=== PATIENT | female | born 1995 | race Caucasian/White ===

== ENCOUNTER 2016-08-17 19:41 | Emergency (ER) | payer OTHER ==
--- NOTE | 2016-08-17 20:13 | PROVIDER DOCUMENTATION ---
HPI-Female /OB/Breast - General Chief Complaint: Female Stated Complaint: 12 WEEKS/BLEEDING Time Seen by Provider: 08/17/16 19:57 Source: reports: patient Allergies/Adverse Reactions: Patient Allergies Allergy/AdvReac Type Severity Reaction Status Date / Time No Known Allergies Allergy Verified 08/17/16 19:51 Home Medications: Vit No.78/Iron/FA [Prenatabs FA Tablet] 1 tab PO DAILY 08/17/16 - History of Present Illness-Female /OB Nature of Presenting Problem: 20 y/o WF approx 12 wks dated by US in the beginning of July, c/o vaginal bleeding that started about 1 hour ago, that at first was as heavy as her menses, but now is just spotting, with some mild abdominal pain in the suprapubic region. Per pt, last US had no abnormalities. She has not seen an OB yet, going to [facility] for the . Denies nausea or vomiting. Has not bled prior to this during her . Review of Systems - Adult - REVIEW OF SYSTEMS - ADULT Constitutional: reports: no symptoms reported. denies: chills, fever, fatique Eyes: reports: no symptoms reported. denies: blurred vision, double vision, eye pain Ears, Nose, Mouth & Throat: reports: no symptoms reported. denies: ear pain, nose pain, throat pain Cardiovascular: reports: no symptoms reported. denies: chest pain, palpitations Respiratory: reports: no symptoms reported. denies: cough, shortness of breath , wheezing Gastrointestinal: reports: see HPI, abdominal pain. denies: diarrhea, nausea, vomiting Genitourinary: reports: no symptoms reported. denies: dysuria, frequency, flank pain Musculoskeletal: reports: no symptoms reported. denies: bone pain, back pain, muscle aches Integumentary: reports: no symptoms reported. denies: rash Neurological: reports: no symptoms reported. denies: headache/migraines Psychiatric: reports: no symptoms reported Endocrine: reports: no symptoms reported Hematologic/Lymphatic: reports: no symptoms reported Allergic/Immunologic: reports: no symptoms reported All Other Systems: Reviewed and Negative Past History - Adult - PAST MEDICAL HISTORY-ADULT Review of Records: reports: Old Records Reviewed, Nursing Assessment Review, Medications Reviewed, Social history reviewed & non-contributory. Major Childhood Illnesses: reports: denies history Cardiovascular: reports: denies history Respiratory: reports: denies history Gastrointestinal: reports: denies history Obstetrical/Gynecological: reports: denies history Genitourinary: reports: denies history Musculoskeletal: reports: denies history Neurological: reports: denies history Endocrine/Immune: reports: denies history Other Conditions: reports: denies history - FAMILY HISTORY Family History: reviewed, not pertinent Physical Exam-General - PHYSICAL EXAM-ADULT Initial Vital Signs Reviewed: Yes - CONSTITUTIONAL General Appearance: appears well, alert, no apparent distress, anxious - EYES Eyes: PERRL/EOMI, pink conjunctivae - HEAD, EARS, NOSE, MOUTH & THROAT HENMT: normocephalic/atraumatic - NECK Neck: non-tender, full range of motion, supple, normal inspection - RESPIRATORY Respiratory: chest non-tender, lungs clear, normal breath sounds, no pleuratic chest pain, no respiratory distress, no accessory muscle use. negative: respiratory distress, decreased breath sounds, accessory muscle use, crackles, rales, rhonchi, wheezing - CARDIOVASCULAR Cardiovascular: normal peripheral pulses, regular rate, rhythm, no edema - GASTROINTESTINAL (ABDOMEN) Abdominal Exam: normal bowel sounds, soft, no organomegaly, no pulsatile mass, tenderness (suprapubic). negative: abdominal bruit, abnormal bowel sounds, distended, guarding, rigid, rebound - LYMPHATIC Lymphatic: no adenopathy - MUSCULOSKELETAL Extremity: normal gait - SKIN Integumentary: normal color, normal turgor, warm/dry - NEUROLOGIC Neurologic: grossly normal, no motor/sensory deficits - PSYCHIATRIC Psych/Mental Status: normal mood/affect, normal thought content, normal thought process, oriented x 3 Progress - PLAN OF CARE/RESULTS Progress/Plan/Lab Results: Vital Signs Temp Pulse Resp BP Pulse Ox 08/17/16 19:49 98.2 F 108 H 18 137/80 100 No Known Allergies Allergy (Verified 08/17/16 19:51) Vit No.78/Iron/FA [Prenatabs FA Tablet] 1 tab PO DAILY 08/17/16 Laboratory 08/17/16 08/17/16 08/17/16 20:22 20:22 20:22 WBC 10.19 RBC 4.36 Hgb 12.5 Hct 37.9 MCV 86.9 MCH 28.7 MCHC 33.0 RDW Std Deviation 13.5 Plt Count 227 MPV 10.7 H Immature Gran % (Auto) 0.1 Neut % (Auto) 72.5 Lymph % (Auto) 20.5 Burnet % (Auto) 5.9 Eos % (Auto) 0.6 Baso % (Auto) 0.4 Immature Gran # (Auto) 0.01 Neut # (Auto) 7.39 H Lymph # (Auto) 2.09 Burnet # (Auto) 0.60 H Eos # (Auto) 0.06 Baso # (Auto) 0.04 Sodium Potassium Chloride Carbon Dioxide Anion Gap BUN Creatinine Estimated GFR/1.73 m2 BUN/Creatinine Ratio Glucose Calculated Osmolality Calcium Total Bilirubin AST ALT Alkaline Phosphatase Total Protein Albumin Globulin Albumin/Globulin Ratio Ser , Semi-Qnt 73662.0 Urine Source Urine Color Urine Clarity Urine pH Ur Specific Killen Urine Protein Urine Ketones Urine Blood Urine Nitrite Urine Bilirubin Urine Urobilinogen Urine Microscopic RBC Urine WBC Urine Microscopic WBC Ur Epithelial Cells Urine Bacteria Urine Glucose Blood Type A POSITIVE 08/17/16 08/17/16 20:22 20:00 WBC RBC Hgb Hct MCV MCH MCHC RDW Std Deviation Plt Count MPV Immature Gran % (Auto) Neut % (Auto) Lymph % (Auto) Burnet % (Auto) Eos % (Auto) Baso % (Auto) Immature Gran # (Auto) Neut # (Auto) Lymph # (Auto) Burnet # (Auto) Eos # (Auto) Baso # (Auto) Sodium 137 Potassium 3.7 Chloride 105 Carbon Dioxide 22 L Anion Gap 11 BUN 9 Creatinine 0.6 Estimated GFR/1.73 m2 > 60 BUN/Creatinine Ratio 15 Glucose 108 H Calculated Osmolality 273 Calcium 9.0 Total Bilirubin < 0.15 L AST 14 ALT 13 Alkaline Phosphatase 46 Total Protein 6.6 Albumin 3.7 Globulin 3.0 Albumin/Globulin Ratio 1.0 Ser , Semi-Qnt Urine Source CLEAN CATCH Urine Color YELLOW Urine Clarity SL. CLOUDY A Urine pH 6.5 Ur Specific Killen 1.020 Urine Protein TRACE A Urine Ketones NEGATIVE Urine Blood 4+ Urine Nitrite NEGATIVE Urine Bilirubin NEGATIVE Urine Urobilinogen 1+(1 mg/dL) Urine Microscopic RBC TNTC A Urine WBC 1+ A Urine Microscopic WBC 10-20 A Ur Epithelial Cells <10 Urine Bacteria 1+ Urine Glucose NEGATIVE Blood Type Orders Category Date Time Status Heart Tones NOW Care 08/17/16 19:58 Active US OBS COMPLETE < 14 WKS [US] Stat Exams 08/17/16 20:56 Taken ABORH [BBK] Stat Lab 08/17/16 20:22 Completed CBC WITH ELECTRONIC DIFF [HEME] Stat Lab 08/17/16 20:22 Completed COMPREHENSIVE METABOLIC PANEL [CHEM] Stat Lab 08/17/16 20:22 Completed QUANT TEST Stat Lab 08/17/16 20:22 Completed UA [URINALYSIS PL W/POSS RFLX CULT] [URINALYSIS] Stat Lab 08/17/16 20:00 Completed URINE CULTURE [RM] Routine Lab 08/17/16 20:46 Received - REASSESSMENT Reassessment #1 Time Reassessed: 20:38 (FHT 168) Reassessment #2 Time Reassessed: 21:24 (Discusse lab results with patient and that we will be waiting on US with two patients ahead of them at this time. Symptoms have improved with decreased vaginal bleeding since arrival. ) Status: unchanged - ULTRASOUND (By Radiology) 1 US Study: Transvaginal Impression: Normal (Normal right overay, left ovary not identified. no free fluid. 13 week IUP EDC 02/16/17, FHR 160 bpm, no abnormalities seen per Dr. Merino , radiology) Departure - Departure Time of Disposition Order: 23:10 DIAGNOSIS: Qualifiers: Weeks of gestation: 13 weeks Qualified Code(s): Z3A.13 - 13 weeks gestation of Disposition: HOME 01 Certified Medical Emergency: Emergent Condition: Stable Additional Instructions: Follow up with the sample washer ED Follow Up Instructions: You have been treated by a care provider in the Emergency Department. These instructions are being provided to you so you can have an understanding of how to care for yourself upon discharge. Upon discharge from the Emergency Department, you are responsible for making arrangements for follow-up care by a physician of your choice. Take all prescribed medications as directed. Return to the Emergency Department immediately for any new or worsening symptoms. You may call the Physician Referral phone number at [phone] to obtain a list of Physicians who are taking new patients. Attestation - Physician/ Mid-level Attestation Patient care was provided by Mid-level provider (COMSEC MANAGER/PA):: Yes Mid-level provider:: Maria Ines Merrill Mid-level documentation review:: The Mid-level provider documentation, treatment plan and medical decision making was reviewed by the physician who agrees with all treatment and medical decision making by the MLP.
[2016-08-17 20:31] LABS: MANUAL DIFF NEEDED? NO
[2016-08-17 20:32] LABS: URINE SOURCE CLEAN CATCH
[2016-08-17 20:36] LABS: BASO% 0.4 % (0.0-0.8); EOS# 0.06 X1000 (0.0-0.7); EOS% 0.6 % (0.0-10.0); HEMATOCRIT 37.9 % (37.0-47.0); HEMOGLOBIN 12.5 g/dL (12.0-16.0); IMM GRAN# 0.01 X1000 (0.0-0.04); IMM GRAN% 0.1 % (0.0-0.5); LYMPH# 2.09 X1000 (1.2-3.4); LYMPH% 20.5 % (20.5-51.1); MCH 28.7 PG (27-31); MCV 86.9 FL (81-99); MONO% 5.9 % (1.7-9.3); MPV 10.7 FL (7.4-10.4); NEUT% 72.5 % (42.2-75.2); PLT 227 X1000 (130-400); RBC 4.36 XMIL (4.2-5.4)
[2016-08-17 20:38] LABS: BILIRUBIN URINE NEGATIVE (NEGATIVE); BLOOD URINE 4+ (NEGATIVE); CLARITY SL. CLOUDY (CLEAR); COLOR YELLOW; GLUCOSE URINE NEGATIVE (NEGATIVE); LEUKOCYTES URINE 1+ (NEGATIVE); NITRITE URINE NEGATIVE (NEGATIVE); PH URINE 6.5; PROTEIN URINE TRACE mg/dL (NEGATIVE); UROBILINOGEN URINE 1+(1 mg/dL)
[2016-08-17 20:46] LABS: URINE CULTURE PL NEEDED? YES; URINE EPITHELIAL CELLS <10 /HPF (<10); URINE RBC TNTC /HPF (<10)
[2016-08-17 20:58] LABS: AGAP 11; ALBUMIN 3.7 g/dL (3.5-5.0); ALKALINE PHOSPHATASE 46 U/L (32-104); BUN 9 mg/dL (8-22); CHLORIDE 105 mmol/L (98-107); COSMO 273; GOT 14 U/L (10-30); GPT 13 U/L (10-36); POTASSIUM 3.7 mmol/L (3.5-5.1); SODIUM 137 mmol/L (136-145); TCO2 22 mmol/L (25-35); TOTAL BILIRUBIN < 0.15 mg/dL (0.20-1.00); TOTAL PROTEIN 6.6 g/dL (6.3-8.3)
[2016-08-17 23:19] VITALS: BP 132/80
--- NOTE | 2016-08-18 10:16 | Diag Imaging Result Document ---
PROCEDURE NAME: US OBS COMPLETE < 14 WKS - 08/17/2016 OBSTETRIC ULTRASOUND: COMPARISON: None available. FINDINGS: There is a single viable intrauterine gestation. The placenta is located posteriorly and the fetus is in variable position. No gross or placental anomalies are identified. The measured heart rate is 160 beats per minute. The gestational age by ultrasound is 13 weeks 6 days. The left ovary is not identified. The right ovary is grossly unremarkable. No pelvic free fluid is identified. IMPRESSION: Single viable intrauterine gestation with no gross anomalies appreciated.
== END 2016-08-17 23:18 | disposition home or self-care (01) ==
LOC: P.ED 19:41
DX: O46.91 Antepartum hemorrhage, unspecified, first trimester (principal); R10.9 Unspecified abdominal pain; R10.819 Abdominal tenderness, unspecified site; Z3A.13 13 weeks gestation of pregnancy
CPT/HCPCS: 76801; 80053; 81001; 84702; 85025; 86900; 86901; 87088

== ENCOUNTER 2017-02-13 20:00 | Inpatient (IN) ==
[2017-02-13] MEDS ORDERED: PEPCID IV PRN (20:16)
[2017-02-13] MEDS ORDERED: ZOFRAN IV PRN (20:16)
[2017-02-13] MEDS ORDERED: AMBIEN PO PRN (20:16)
[2017-02-13] MEDS ORDERED: PEPCID PO PRN (20:16)
[2017-02-13] MEDS ORDERED: STADOL IV PRN ×2 (20:16)
[2017-02-13] MEDS ORDERED: TYLENOL PO PRN (20:16)
[2017-02-13] MEDS ORDERED: PEPCID PO ONE (20:16)
[2017-02-13] MEDS ORDERED: KEFZOL 1 GM/D5W 1 GM/50 ML IVPB IV PRN (20:16)
[2017-02-13] MEDS ORDERED: BRETHINE SUBQ PRN (20:16)
[2017-02-13] MEDS ORDERED: REGLAN PO ONE (20:16)
[2017-02-13] MEDS ORDERED: AMPICILLIN 2 GM/NS 2 GM/100 ML IVPB IV ONE (21:00)
[2017-02-13] MEDS: LR 1,000 ML IV SCH (21:45)
[2017-02-13 22:25] LABS: MANUAL DIFF NEEDED? NO
[2017-02-13 22:29] LABS: URINE SOURCE VOIDED
[2017-02-13 22:31] LABS: BASO% 0.2 % (0.0-0.8); EOS# 0.07 X1000 (0.0-0.7); EOS% 0.7 % (0.0-10.0); HEMATOCRIT 36.2 % (37.0-47.0); HEMOGLOBIN 11.6 g/dL (12.0-16.0); IMM GRAN# 0.03 X1000 (0.0-0.04); IMM GRAN% 0.3 % (0.0-0.5); LYMPH# 2.05 X1000 (1.2-3.4); LYMPH% 21.3 % (20.5-51.1); MCH 27.8 PG (27-31); MCV 86.8 FL (81-99); MONO# 0.63 X1000 (0.11-0.59); MONO% 6.6 % (1.7-9.3); MPV 12.4 FL (7.4-10.4); NEUT% 70.9 % (42.2-75.2); PLT 209 X1000 (130-400); RBC 4.17 XMIL (4.2-5.4)
[2017-02-13 22:39] LABS: UR AMPHETAMINES QUAL NONE DETECTED (NONE DETECT); UR BARBITUATES QUAL NONE DETECTED (NONE DETECT); UR BENZODIAZEPIN QUAL NONE DETECTED (NONE DETECT); UR CANNABINOIDS QUAL NONE DETECTED (NONE DETECT); UR COCAINE QUAL NONE DETECTED (NONE DETECT); UR MDMA QUAL NONE DETECTED (NONE DETECT); UR METHADONE QUAL NONE DETECTED (NONE DETECT); UR METHAMPHETAMINE QUAL NONE DETECTED (NONE DETECT); UR OPIATES QUAL NONE DETECTED (NONE DETECT); UR OXYCODONE QUAL NONE DETECTED (NONE DETECT); UR PCP QUAL NONE DETECTED (NONE DETECT); UR TCA QUAL NONE DETECTED (NONE DETECT)
[2017-02-13 22:50] LABS: BILIRUBIN URINE NEGATIVE (NEGATIVE); BLOOD URINE NEGATIVE (NEGATIVE); CLARITY SL. CLOUDY (CLEAR); COLOR YELLOW; GLUCOSE URINE NEGATIVE (NEGATIVE); LEUKOCYTES URINE TRACE (NEGATIVE); NITRITE URINE NEGATIVE (NEGATIVE); PROTEIN URINE TRACE mg/dL (NEGATIVE); SP GRAVITY URINE 1.025; UROBILINOGEN URINE NORMAL
[2017-02-13] MEDS ORDERED: CYTOTEC PO ONE (23:00)
[2017-02-14] MEDS: AMPICILLIN 1 GM/NS 1 GM/50 ML IVPB IV SCH ×5 (01:10→17:06)
[2017-02-14] MEDS: CYTOTEC PO SCH ×2 (03:16→18:43)
[2017-02-14] MEDS ORDERED: PITOCIN 30 UNITS/LR 30 UNITS/500 ML IV.SOLN IV SCH (07:00)
[2017-02-14] MEDS ORDERED: MINERAL OIL PO ONE (07:30)
[2017-02-14] MEDS ORDERED: XYLOCAINE-MPF 1% INJ ONE ×2 (07:30→08:40)
[2017-02-14] MEDS ORDERED: FENTANYL-BUPIV-NS 2 MCG-0.1% 200 ML EPIDURAL PRN (07:34)
[2017-02-14] MEDS: STADOL IV PRN ×2 (09:24→12:20)
[2017-02-14] MEDS: LR 1,000 ML IV SCH ×3 (11:34→15:48)
[2017-02-14] MEDS ORDERED: NAROPIN 0.2% ONE (12:21)
[2017-02-14] MEDS ORDERED: SODIUM CHLORIDE 0.9% INJ ONE (17:00)
[2017-02-14] MEDS ORDERED: PEPCID IV ONE (17:00)
[2017-02-14] MEDS ORDERED: ROBINUL ONE (17:10)
[2017-02-14] MEDS ORDERED: XYLOCAINE-MPF 2% ONE ×2 (17:10→18:51)
[2017-02-14] MEDS ORDERED: PITOCIN ONE (17:10)
[2017-02-14] MEDS: BICITRA PO ONE ×2 (17:20→19:12)
--- NOTE | 2017-02-14 17:24 | HISTORY AND PHYSICAL ---
PREOPERATIVE DIAGNOSES: 1. Intrauterine at 39 weeks. 2. induced hypertension. 3. 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 4. Nonimmune to rubella. 5. Arrest of dilation. 6. Arrest of descent. CONDITION: Stable. HISTORY OF PRESENT ILLNESS: Ms Noel is a 21-year-old primigravida with estimated date of delivery of 02/19/2017 who was admitted last night for Cytotec induction. She received 2 doses of Cytotec. This morning, she was started on Pitocin. She was artificially ruptured and received epidural anesthesia. She made slow progress, reached 5 cm, 90% effaced, -3 station and then did not progress past that point despite adequate time and adequate contractions, and that with some recurring heart rate deceleration. Decision was made to proceed with a delivery. This is explained to patient and patient's family and they agree. OBSTETRICAL HISTORY: Uncomplicated. She is immune to rubella. She is GBS carrier status positive and she developed PIH later in the , necessitating the induction. PAST SURGICAL HISTORY: Negative. ALLERGIES: She has no known drug allergies. SOCIAL HISTORY: Negative. FAMILY HISTORY: Noncontributory. PHYSICAL EXAMINATION: VITAL SIGNS: Blood pressure 130/90, temperature 96.6 degrees, pulse 85. GENERAL: She is cooperative, somewhat groggy from lack of sleep and early IV sedation. Epidural seems to be see working well. LUNGS: Clear. HEART: Regular sinus rhythm. ABDOMEN: Gravid. CERVIX: 5, 90, -3, +2 lower extremity edema. ASSESSMENT: As above. PLAN: Primary low transverse section. cc: Bran Buckley MD
[2017-02-14] MEDS ORDERED: DURAMORPH ONE (17:31)
[2017-02-14] MEDS ORDERED: PITOCIN 20 UNITS/LR 20 UNITS/1,000 ML IV.SOLN ONE (17:41)
[2017-02-14] MEDS ORDERED: BICITRA ONE (19:10)
[2017-02-14] MEDS ORDERED: KETALAR ONE (19:29)
[2017-02-14] MEDS ORDERED: DIPRIVAN 1% ONE (19:30)
[2017-02-14] MEDS ORDERED: ZOFRAN ONE (19:46)
[2017-02-14] MEDS ORDERED: DECADRON ONE (19:46)
[2017-02-14] MEDS ORDERED: DILAUDID ONE (20:17)
[2017-02-14] MEDS ORDERED: HYDROXYZINE PO PRN (20:43)
[2017-02-14] MEDS ORDERED: CYTOTEC PO PRN (20:43)
[2017-02-14] MEDS ORDERED: PITOCIN IM PRN (20:43)
[2017-02-14] MEDS ORDERED: DEMEROL IM PRN (20:43)
[2017-02-14] MEDS ORDERED: MYLICON PO PRN (20:43)
[2017-02-14] MEDS ORDERED: PHENERGAN IM PRN (20:43)
[2017-02-14] MEDS ORDERED: DEMEROL PO PRN ×2 (20:43)
[2017-02-14] MEDS ORDERED: BOOSTRIX VACCINE IM ONE (20:43)
[2017-02-14] MEDS ORDERED: AMBIEN PO PRN (20:43)
[2017-02-14] MEDS ORDERED: PERCOCET-5 PO PRN (20:43)
[2017-02-14] MEDS ORDERED: PITOCIN 20 UNITS/LR 20 UNITS/1,000 ML IV.SOLN IV ONE (20:43)
[2017-02-14] MEDS ORDERED: M-M-R II VACCINE SUBQ ONE (20:43)
[2017-02-14] MEDS ORDERED: DULCOLAX PR PRN (20:43)
[2017-02-14] MEDS ORDERED: HYDROXYZINE IM PRN (20:43)
[2017-02-14] MEDS ORDERED: NARCAN INJ PRN (20:48)
[2017-02-14] MEDS ORDERED: ZOFRAN ODT PO PRN (20:48)
[2017-02-14] MEDS ORDERED: BENADRYL IV PRN ×2 (20:48→21:28)
[2017-02-14] MEDS ORDERED: ZOFRAN IV PRN ×3 (20:48→21:28)
[2017-02-14] MEDS ORDERED: MORPHINE IV PRN (20:49)
--- NOTE | 2017-02-14 20:59 | OPERATIVE NOTE ---
PROCEDURE DATE: 02/14/2017 PREOPERATIVE DIAGNOSES: 1. at 39 weeks. 2. -induced hypertension. 3. Group B Streptococcus carrier positive. 4. Nonimmune to rubella. 5. Arrest of dilation. 6. Arrest of descent. POSTOPERATIVE DIAGNOSES: 1. at 39 weeks. 2. -induced hypertension. 3. Group B Streptococcus carrier positive. 4. Nonimmune to rubella. 5. Arrest of dilation. 6. Arrest of descent. 7. Occiput posterior. CONDITION: Stable. PHYSICIAN: Marcio. ANESTHESIA: General endotracheal with Dr. Lange. FINDINGS: Viable male . Do not have weight or Apgars. ESTIMATED BLOOD LOSS: 600 mL. COMPLICATIONS: No complications. DRAINS: Roberts catheter. DESCRIPTION OF PROCEDURE: Please refer to Ms. Noel's records and H and P. She was admitted at 39 weeks due to primary -induced hypertension. She had arrest of dilation. Arrest of descent. She was appropriately consented and brought to the operating room where she was placed under general endotracheal anesthesia after failure of her epidural. A Pfannenstiel skin incision was made through the subcuticular tissue. The fascia was nicked in the midline. The fascia opened with curved Bazzi's. Rectus muscle dissected from underneath the rectus fascia and pulled to the side. Peritoneum opened bluntly. Bladder blade was placed. Hysterotomy incision made in the midline, extended by pulling cephalad and caudad. delivered with the use of a vacuum, occiput after being converted from occiput posterior to occiput anterior and elevated and out of the pelvis. Shoulders and rest of the body delivered easily. Cord doubly clamped and cut. Care of taken over by Pediatric personnel. Cord blood obtained. 3 vessels noted. Uterus massaged to deliver the placenta. Delivered intact. Uterus exteriorized. Right free of clots and remaining placental tissue. Hysterotomy incision was closed with 1 chromic running and locking. Good hemostasis. Fundus, tubes, ovaries appear normal. Uterus placed back into the abdomen. Irrigation done. No bleeding noted. Peritoneum reapproximated with 1 chromic. Muscle plicated in the midline with interrupted stitches of 1 chromic, fascia closed with interrupted stitches of 0 Vicryl. Then a running nonlocking stitch of 0 Vicryl. Subcutaneous was irrigated and made hemostatic by electrocautery. Vic's fascia reapproximated with 3-0 chromic and skin was reapproximated with 4-0 Biosyn on a Nehemiah needle. All counts were correct. She was taken recovery room in stable condition after being awakened. cc: Bran Buckley MD
[2017-02-14] MEDS ORDERED: SODIUM CHLORIDE 0.9% INJ PRN (21:28)
[2017-02-14] MEDS ORDERED: NARCAN IV PRN (21:28)
[2017-02-14] MEDS ORDERED: NARCAN 0.4 MG in LR 1,000 ML IV PRN (21:28)
[2017-02-14] MEDS ORDERED: PHENERGAN IV PRN (21:28)
[2017-02-14] MEDS ORDERED: DILAUDID PCA VIAL IV PRN (21:28)
[2017-02-14] MEDS ORDERED: OFIRMEV 1000 MG/ISOTONIC SOLN 1,000 MG/100 ML BOTTLE IV PRN (21:41)
[2017-02-14] MEDS: TORADOL IV SCH (22:32)
[2017-02-15] MEDS: PITOCIN 10 UNITS/LR 10 UNIT/1,000 ML IV.SOLN IV SCH ×3 (00:45→09:19)
[2017-02-15] MEDS: MYLICON PO SCH ×6 (01:55→20:55)
[2017-02-15] MEDS: PERICOLACE PO SCH ×2 (01:56→20:55)
[2017-02-15] MEDS: TYLENOL PO SCH ×3 (01:56→10:38)
[2017-02-15] MEDS: LR 1,000 ML IV SCH (01:56)
[2017-02-15] MEDS: TORADOL IV SCH ×2 (05:06→10:39)
[2017-02-15 07:30] LABS: BASO% 0.1 % (0.0-0.8); HEMATOCRIT 30.7 % (37.0-47.0); HEMOGLOBIN 9.8 g/dL (12.0-16.0); IMM GRAN# 0.04 X1000 (0.0-0.04); IMM GRAN% 0.3 % (0.0-0.5); LYMPH# 1.29 X1000 (1.2-3.4); LYMPH% 8.7 % (20.5-51.1); MANUAL DIFF NEEDED? YES; MCH 27.8 PG (27-31); MCHC 31.9 g/dL (33-37); MCV 87.2 FL (81-99); MONO# 0.73 X1000 (0.11-0.59); MONO% 4.9 % (1.7-9.3); MPV 12.1 FL (7.4-10.4); PLT 169 X1000 (130-400); RBC 3.52 XMIL (4.2-5.4)
[2017-02-15 07:42] LABS: LYMPHS 5 % (21-51)
[2017-02-15] MEDS ORDERED: [UNRECOGNIZED DRUG - OTHER] PO SCH (09:00)
[2017-02-15] MEDS ORDERED: FOLIC PO SCH (09:00)
[2017-02-15] MEDS ORDERED: CASEI PO SCH (09:00)
[2017-02-15] MEDS: PRECARE PO SCH (09:17)
[2017-02-15] MEDS: HEMOCYTE PLUS CAPSULE PO SCH (09:17)
[2017-02-15] MEDS: PERCOCET-10 PO PRN ×5 (11:47→23:48)
[2017-02-15] MEDS: MOTRIN PO PRN (16:24)
[2017-02-15] MEDS ORDERED: LR 1,000 ML IV SCH (16:54)
[2017-02-16] MEDS: LR 1,000 ML IV SCH (04:35)
[2017-02-16] MEDS: MOTRIN PO PRN ×3 (05:19→21:55)
[2017-02-16] MEDS: PERCOCET-10 PO PRN ×4 (05:19→19:49)
[2017-02-16] MEDS: PRECARE PO SCH (08:15)
[2017-02-16] MEDS: HEMOCYTE PLUS CAPSULE PO SCH (08:15)
[2017-02-16] MEDS: MYLICON PO SCH ×4 (08:15→21:55)
[2017-02-16] MEDS: TYLENOL PO SCH (16:28)
[2017-02-16] MEDS: PERICOLACE PO SCH (21:55)
[2017-02-17] MEDS: PERCOCET-10 PO PRN (02:50)
[2017-02-17] MEDS ORDERED: ZOFRAN IV ONE (08:15)
[2017-02-17 08:22] VITALS: BP 148/88
[2017-02-17] MEDS ORDERED: ZOFRAN ODT PO ONE (08:40)
[2017-02-17] MEDS: PRECARE PO SCH (10:26)
[2017-02-17] MEDS: HEMOCYTE PLUS CAPSULE PO SCH (10:26)
--- NOTE | 2017-02-18 03:58 | DISCHARGE SUMMARY ---
ADMISSION DATE: 02/13/2017 DISCHARGE DATE: 02/17/2017 ADMITTING DIAGNOSES: 1. A 39 week . 2. -induced hypertension 3. Group B strep positive. PRINCIPAL DIAGNOSIS: Arrest of dilatation and descent. PRINCIPAL PROCEDURE: Primary low-transverse section. SUMMARY: Luis E Noel is a 21-year-old primigravida at 39 weeks gestation. She was admitted to the hospital on 02/13/[address] Buckley for induction of labor. She received Cytotec overnight and on the morning of 02/14/2017 was started on IV Pitocin. She made slow progression through labor and reached 5 cm. She did not progress past that point. Therefore, a primary low-transverse was performed by Dr. Buckley. There were no intraoperative complications. She delivered a male weighing 8 pounds and 3 ounces with Apgars of 3 at one minute, 7 at five minutes, and 9 at ten minutes. Postoperatively, the patient has done well. She has remained afebrile and all vital signs were stable. She had an admission hemoglobin and hematocrit of 11.6 and 36.2 with discharge hemoglobin and hematocrit being 9.8 and 30.7. On the day of discharge, cardiac and pulmonary exams were normal. Bowel and bladder function was normal. Incision was clean and dry. She was having scant vaginal bleeding. Ms. Noel will be discharged today and we will see her back in the office at the end of the week. Routine discharge instructions, activity limitations, and precautions were discussed. She will continue her vitamins. She was given prescriptions for Percocet, ibuprofen, and Zofran. cc: MD Bran Bates MD
== END 2017-02-17 10:30 | disposition home or self-care (01) ==
LOC: P.LD 20:10
PROVIDERS: ADMIT Obstetrics & Gynecology; ATTEND Obstetrics & Gynecology